=== PATIENT | female | born 1950 | race Caucasian/White ===

== ENCOUNTER 2018-12-19 07:15 | Day surgery (SDC) | payer MEDICARE ==
[~2018-12-19] VITALS: Ht 162.6 cm; Wt 54.4 kg
[~2018-12-19 07:15] MED LIST: ACETAMINOPHEN 325 MG TAB PO PRN; BSS with VANC/TOB/EPI for EYE CASES IR ONE; COMPAZINE; CYCLOPENTOLATE 2% OPHTH SOLN 2ML BTL OS ONE; DARV100T; HEALON DUET PRO(HEALON 10MG/ML 0.55ML & HEALON ENDOCOAT 30MG/ML 0.85ML) As Ordered ONE; IMODIUM; LIDOCAINE 1% SDV 5 ML VIAL As Ordered ONE; LIDOCAINE 3.5 % 1ML OPHTH TOPICAL GEL OU ONE; MIDAZOLAM INJ 2 MG/2 ML VIAL (J2250) As Ordered ONE; MOXIFLOXACIN IN BSS 0.25MG/0.25ML INTRACAMERAL INJ (OR EYE ONLY)(J2280) As Ordered ONE; OFLOXACIN 0.3 % (OCUFLOX) OPTH SOL 5ML OS ONE; ONDANSETRON 4MG/2ML VIAL (J2405) As Ordered ONE; PHENYLEPHRINE 2.5% OPHTH SOL 2ML OS ONE; PHENYLEPHRINE HCL 10 % OPHTH. SOL 5ML OS PRN; POTA20TA2; POVIDONE-IODINE 5% OPHTH PREP SOL 30ML As Ordered ONE; TRIAMCINOLONE PRES FR 40 MG/ML 1ML(TRIESENCE)(OR EYE ONLY)(J3300 PER 1MG) As Ordered ONE; TROPICAMIDE 1% OPHTH SOLN 2ML OS ONE; VITA500045 PO; fentaNYL 100 MCG/2 ML INJECTION (J3010) As Ordered ONE
[2018-12-19] MEDS ORDERED: LIDOCAINE 2% W/EPIN INJ 20ML **PRES FREE XX ONE (10:37)
[2018-12-19] MEDS ORDERED: LIDOCAINE 2% W/EPIN INJ 20ML **PRES FREE As Ordered ONE (10:56)
[2018-12-19 11:15] VITALS: BP 138/66
[2018-12-19] MEDS ORDERED: AcetaZOLAMIDE 500 MG ER CAP As Ordered ONE (11:15)
[2018-12-19] MEDS ORDERED: AcetaZOLAMIDE 500 MG ER CAP PO ONE (11:15)
[2018-12-19] MEDS ORDERED: TRIMETHOBENZAMIDE 300 MG CAP PO PRN (11:15)
== END 2018-12-19 11:25 | disposition home or self-care (01) ==
LOC: M SDC 07:15
PROVIDERS: ATTEND Ophthalmology
DX: H25.9 Unspecified age-related cataract (principal); Z85.44 Personal history of malignant neoplasm of other female genital organs; Z92.21 Personal history of antineoplastic chemotherapy; Z92.3 Personal history of irradiation; Z87.891 Personal history of nicotine dependence
CPT/HCPCS: 66984; 67515; 92015; J2250; J2280; J2405; J3010; J3300; V2632

== ENCOUNTER 2018-12-27 08:01 | Day surgery (SDC) | payer MEDICARE ==
[~2018-12-27] VITALS: Ht 162.6 cm; Wt 54.4 kg
[~2018-12-27 08:01] MED LIST changes: +CYCLOPENTOLATE 2% OPHTH SOLN 2ML BTL OD ONE; -CYCLOPENTOLATE 2% OPHTH SOLN 2ML BTL OS ONE; +OFLOXACIN 0.3 % (OCUFLOX) OPTH SOL 5ML OD ONE; -OFLOXACIN 0.3 % (OCUFLOX) OPTH SOL 5ML OS ONE; -ONDANSETRON 4MG/2ML VIAL (J2405) As Ordered ONE; +PHENYLEPHRINE 2.5% OPHTH SOL 2ML OD ONE; -PHENYLEPHRINE 2.5% OPHTH SOL 2ML OS ONE; +PHENYLEPHRINE HCL 10 % OPHTH. SOL 5ML OD PRN; -PHENYLEPHRINE HCL 10 % OPHTH. SOL 5ML OS PRN; +TROPICAMIDE 1% OPHTH SOLN 2ML OD ONE; -TROPICAMIDE 1% OPHTH SOLN 2ML OS ONE
[2018-12-27 11:25] VITALS: BP 112/53
[2018-12-27] MEDS ORDERED: AcetaZOLAMIDE 500 MG ER CAP As Ordered ONE (11:31)
[2018-12-27] MEDS ORDERED: TRIMETHOBENZAMIDE 300 MG CAP PO PRN (11:45)
[2018-12-27] MEDS ORDERED: AcetaZOLAMIDE 500 MG ER CAP PO ONE (11:45)
== END 2018-12-27 11:45 | disposition home or self-care (01) ==
LOC: M SDC 08:01
PROVIDERS: ATTEND Ophthalmology
DX: H25.9 Unspecified age-related cataract (principal); Z87.891 Personal history of nicotine dependence; Z85.44 Personal history of malignant neoplasm of other female genital organs; Z92.21 Personal history of antineoplastic chemotherapy; Z92.3 Personal history of irradiation
CPT/HCPCS: 66984; 67515; 92015; J2250; J2280; J3010; J3300; V2632

== ENCOUNTER → 2021-01-13 | Outpatient (CLI) | payer MEDICARE ==
[~2021-01-13] MED LIST changes: -ACETAMINOPHEN 325 MG TAB PO PRN; -BSS with VANC/TOB/EPI for EYE CASES IR ONE; -CYCLOPENTOLATE 2% OPHTH SOLN 2ML BTL OD ONE; -HEALON DUET PRO(HEALON 10MG/ML 0.55ML & HEALON ENDOCOAT 30MG/ML 0.85ML) As Ordered ONE; -LIDOCAINE 1% SDV 5 ML VIAL As Ordered ONE; -LIDOCAINE 3.5 % 1ML OPHTH TOPICAL GEL OU ONE; -MIDAZOLAM INJ 2 MG/2 ML VIAL (J2250) As Ordered ONE; -MOXIFLOXACIN IN BSS 0.25MG/0.25ML INTRACAMERAL INJ (OR EYE ONLY)(J2280) As Ordered ONE; -OFLOXACIN 0.3 % (OCUFLOX) OPTH SOL 5ML OD ONE; -PHENYLEPHRINE 2.5% OPHTH SOL 2ML OD ONE; -PHENYLEPHRINE HCL 10 % OPHTH. SOL 5ML OD PRN; -POVIDONE-IODINE 5% OPHTH PREP SOL 30ML As Ordered ONE; -TRIAMCINOLONE PRES FR 40 MG/ML 1ML(TRIESENCE)(OR EYE ONLY)(J3300 PER 1MG) As Ordered ONE; -TROPICAMIDE 1% OPHTH SOLN 2ML OD ONE; -fentaNYL 100 MCG/2 ML INJECTION (J3010) As Ordered ONE
[2021-01-13 16:01] LABS: HEMOGLOBIN A1c 5.2 %
[2021-01-13 16:20] LABS: FOLATE 21.4 NG/ML; RHEUMATOID FACTOR QUANT < 10.0 IU/ML (<15.0); THYROID STIMULATING HORMONE 0.833 uIU/ML (0.358-3.740); TOTAL PROTEIN 6.5 GM/DL (6.4-8.2); VITAMIN B12 LEVEL 430 PG/ML
[2021-01-14 12:04] LABS: ALBUMIN 4.22 GM/DL (3.29-5.55); ALBUMIN % 64.9 % (55.8-66.1); ALPHA-1-GLOBULIN % 3.9 % (2.9-4.9); ALPHA-1-GLOBULINS 0.25 GM/DL (0.17-0.41); ALPHA-2-GLOBULINS 0.67 GM/DL (0.42-0.99); ALPHA-2-GLOBULINS % 10.3 % (7.1-11.8); BETA-1-GLOBULINS 0.39 GM/DL (0.28-0.60); BETA-2-GLOBULINS % 3.9 % (3.2-6.5)
[2021-01-14 12:05] LABS: BETA-2-GLOBULINS 0.25 GM/DL (0.19-0.55); GAMMA GLOBULINS 0.72 GM/DL (0.65-1.58)
[2021-01-15 11:56] LABS: PTT LUPUS TYPE ANTICOAG SCREEN 0.9 (0-1.2)
== END ==
LOC: M PLALAB 12:08
PROVIDERS: ATTEND Psychiatry & Neurology Neurology
DX: G62.9 Polyneuropathy, unspecified (principal); Z79.899 Other long term (current) drug therapy

== ENCOUNTER 2021-01-17 13:50 | Outpatient (CLI) | payer MEDICARE ==
[~2021-01-17] VITALS: Ht 162.6 cm; Wt 52.2 kg
[2021-01-17 14:00] VITALS: BP 127/58
[2021-01-17] MEDS ORDERED: methylPREDNISolone 500 MG, VIAL MATE ADAPTER 1 EACH in NS 250 ML IV ONE (14:10)
[2021-01-17] MEDS ORDERED: CALC-190 PO (14:49)
[2021-01-17] MEDS ORDERED: DRIS50003 PO (14:55)
[2021-01-17 16:00] VITALS: BP 129/62
== END 2021-01-17 16:00 | disposition home or self-care (01) ==
LOC: M INFU 13:50
PROVIDERS: ATTEND Psychiatry & Neurology Neurology
DX: G37.9 Demyelinating disease of central nervous system, unspecified (principal)
CPT/HCPCS: 96365; J2930

== ENCOUNTER 2021-01-18 09:43 | Outpatient (CLI) | payer MEDICARE ==
[~2021-01-18] VITALS: Ht 162.6 cm; Wt 52.3 kg
[~2021-01-18 09:43] MED LIST changes: +CALC-190 PO; +DRIS50003 PO
[2021-01-18 09:49] VITALS: BP 143/79
[2021-01-18] MEDS ORDERED: methylPREDNISolone 500 MG, VIAL MATE ADAPTER 1 EACH in NS 250 ML IV ONE (11:00)
== END 2021-01-18 13:04 | disposition home or self-care (01) ==
LOC: M MSPAV 09:43 → M OPCLI4PV 09:43 → UNDODISIN 13:04 → M OPCLI4PV 13:04
PROVIDERS: ATTEND Psychiatry & Neurology Neurology
DX: G37.9 Demyelinating disease of central nervous system, unspecified (principal)
CPT/HCPCS: 96374; J2930

== ENCOUNTER 2021-01-19 08:40 | Outpatient (CLI) | payer MEDICARE ==
[2021-01-19 09:07] VITALS: BP 132/62
[2021-01-19] MEDS ORDERED: methylPREDNISolone 500 MG, VIAL MATE ADAPTER 1 EACH in NS 250 ML IV ONE (10:00)
== END 2021-01-19 11:00 ==
LOC: M INFU 08:40 → M MSPAV 08:46 → M INFU 11:00
PROVIDERS: ATTEND Psychiatry & Neurology Neurology
DX: G37.9 Demyelinating disease of central nervous system, unspecified (principal)
CPT/HCPCS: 96365; J2930

== ENCOUNTER 2021-01-20 14:57 | Outpatient (CLI) | payer MEDICARE ==
[~2021-01-20] VITALS: Ht 162.6 cm; Wt 52.2 kg
[2021-01-20] MEDS ORDERED: methylPREDNISolone 500 MG, VIAL MATE ADAPTER 1 EACH in NS 250 ML IV ONE (15:00)
[2021-01-20 15:08] VITALS: BP 139/68
[2021-01-20 16:23] VITALS: BP 112/56
== END 2021-01-20 16:26 | disposition home or self-care (01) ==
LOC: M INFU 14:57
PROVIDERS: ATTEND Psychiatry & Neurology Neurology
DX: G37.9 Demyelinating disease of central nervous system, unspecified (principal)
CPT/HCPCS: 96365; J2930

== ENCOUNTER 2021-01-21 14:44 | Outpatient (CLI) | payer MEDICARE ==
[~2021-01-21] VITALS: Ht 162.6 cm; Wt 52.2 kg
[2021-01-21] MEDS ORDERED: methylPREDNISolone 500 MG, VIAL MATE ADAPTER 1 EACH in NS 250 ML IV ONE (15:00)
[2021-01-21 15:13] VITALS: BP 106/58
== END 2021-01-21 16:00 | disposition home or self-care (01) ==
LOC: M INFU 14:44
PROVIDERS: ATTEND Psychiatry & Neurology Neurology
DX: G37.9 Demyelinating disease of central nervous system, unspecified (principal)
CPT/HCPCS: 96365; J2930

== ENCOUNTER → 2021-01-22 | Outpatient (CLI) | payer MEDICARE ==
[2021-01-22 16:54] LABS: INR 0.89; PROTHROMBIN TIME 12.4 SECONDS (12.7-14.5)
[2021-01-22 16:55] LABS: PARTIAL THROMBOPLASTIN TIME 31.4 SECONDS (25.9-37.0)
== END ==
LOC: M LAB 15:24
PROVIDERS: ATTEND Psychiatry & Neurology Neurology
DX: G35 Multiple sclerosis (principal); Z79.01 Long term (current) use of anticoagulants

== ENCOUNTER → 2021-02-12 | Outpatient (CLI) | payer MEDICARE ==
[~2021-02-12] MED LIST changes: +LIDOCAINE 1% MDV 20ML VIAL As Ordered ONE
[2021-02-12 11:28] LABS: APPEARANCE, CSF CLEAR (CLEAR); COLOR, CSF COLORLESS (COLORLESS); CSF TUBE# CELL CNT TUBE 1
[2021-02-12 11:35] VITALS: BP 101/51
[2021-02-12 12:01] LABS: CSF TUBE# GLU TUBE 1; CSF TUBE# TP TUBE 1; GLUCOSE CSF 54 MG/DL (40-75); TOTAL PROTEIN,CSF 50 MG/DL (15-45)
--- NOTE | 2021-02-12 16:19 | REP ---
INDICATION: MS PROTOCOL. TECHNIQUE: The procedure was performed under the direct supervision of Dr. Triana. The risks and benefits of the procedure were explained to the patient and informed consent was obtained. The L3-4 interspace was localized using fluoroscopic guidance. The skin was prepped and draped in a sterile fashion. 1% lidocaine was used as a local anesthetic. Using fluoroscopic guidance a 22-gauge spinal needle was inserted and advanced into the thecal sac. Opening pressure measured 10 cm of H2O. 12 ml of spinal fluid was withdrawn and sent to lab. The patient tolerated the procedure well and there were no immediate complications. Less than 6 seconds of fluoro time was utilized for this procedure. FINDINGS: Opening pressure measured 10 cm of H2O. IMPRESSION: Fluoro guidance for lumbar puncture. <Electronically signed by Shan Mayberry > 02/12/21 1525 <Electronically signed by Yohannes Triana > 02/12/21 1611
== END ==
LOC: M IRPRO 08:25
PROVIDERS: ATTEND Psychiatry & Neurology Neurology
DX: G37.9 Demyelinating disease of central nervous system, unspecified (principal)

== ENCOUNTER → 2022-06-24 | Outpatient (CLI) | payer MEDICARE ==
[~2022-06-24] MED LIST changes: -LIDOCAINE 1% MDV 20ML VIAL As Ordered ONE
[2022-06-24 09:31] LABS: BLOOD UREA NITROGEN 13 MG/DL (9-23); GLOMERULAR FILTRATION RATE > 60.0 (>39)
== END ==
LOC: M LAB 08:36
PROVIDERS: ATTEND Physician Assistant
DX: Z85.41 Personal history of malignant neoplasm of cervix uteri (principal)

== ENCOUNTER → 2022-07-28 | Outpatient (CLI) | payer MEDICARE ==
[2022-07-28 14:34] LABS: HEMOGLOBIN A1c 5.2 % (4.0-6.0)
[2022-07-28 14:36] LABS: FOLATE > 24.0 NG/ML (>5.4); RHEUMATOID FACTOR QUANT < 3.5 IU/ML (<14)
[2022-07-28 14:37] LABS: FREE THYROXINE INDEX 2.2 % (1.3-4.8); T UPTAKE 26.8 % (22.5-37.0); THYROXINE (T4) 8.1 UG/DL (4.5-10.9); VITAMIN B12 LEVEL 286 PG/ML (211-911)
[2022-07-29 12:10] LABS: ANTINUCLEAR ANTIBODIES DIRECT Negative (Negative)
== END ==
LOC: M LAB 12:56
PROVIDERS: ATTEND Psychiatry & Neurology Neurology
DX: G35 Multiple sclerosis (principal); E07.9 Disorder of thyroid, unspecified

== ENCOUNTER → 2022-08-17 | Outpatient (REF) | payer MEDICARE | LOC: M SFHCDERM 17:34 | PROVIDERS: ATTEND Physician Assistant | DX: D23.61 Other benign neoplasm of skin of right upper limb, including shoulder (principal) ==

== ENCOUNTER 2022-08-20 12:40 | Outpatient (CLI) | payer MEDICARE ==
[~2022-08-20] VITALS: Ht 162.6 cm; Wt 55.0 kg
[2022-08-20] MEDS ORDERED: methylPREDNISolone 500 MG, VIAL MATE ADAPTER 1 EACH in NS 250 ML IV ONE (13:00)
[2022-08-20 13:03] VITALS: BP 125/69
[2022-08-20 14:20] VITALS: BP 116/57
== END 2022-08-20 14:20 | disposition home or self-care (01) ==
LOC: M INFU 12:40
PROVIDERS: ATTEND Psychiatry & Neurology Neurology
DX: G35 Multiple sclerosis (principal)
CPT/HCPCS: 96365; J2930

== ENCOUNTER 2022-08-21 12:20 | Outpatient (CLI) | payer MEDICARE ==
[~2022-08-21] VITALS: Ht 162.6 cm; Wt 55.0 kg
[2022-08-21 12:20] VITALS: BP 128/68
[2022-08-21] MEDS ORDERED: methylPREDNISolone 500 MG, VIAL MATE ADAPTER 1 EACH in NS 250 ML IV ONE (13:00)
[2022-08-21 13:55] VITALS: BP 110/55
== END 2022-08-21 13:55 | disposition home or self-care (01) ==
LOC: M INFU 12:20
PROVIDERS: ATTEND Psychiatry & Neurology Neurology
DX: G35 Multiple sclerosis (principal)
CPT/HCPCS: 96365; J2930

== ENCOUNTER 2022-08-22 12:33 | Outpatient (CLI) | payer MEDICARE ==
[2022-08-22] MEDS ORDERED: methylPREDNISolone 500 MG, VIAL MATE ADAPTER 1 EACH in NS 250 ML IV ONE (14:00)
== END 2022-08-22 14:48 ==
LOC: M OPCLI4PV 12:33 → M INFU 12:33 → M MSPAV 12:43 → M OPCLI4PV 14:48
PROVIDERS: ATTEND Psychiatry & Neurology Neurology
DX: G35 Multiple sclerosis (principal)
CPT/HCPCS: 96365; J2930

== ENCOUNTER 2022-08-23 12:26 | Outpatient (CLI) | payer MEDICARE ==
[~2022-08-23] VITALS: Ht 162.6 cm; Wt 55.0 kg
[2022-08-23 12:50] VITALS: BP 123/63
[2022-08-23] MEDS ORDERED: methylPREDNISolone 500 MG, VIAL MATE ADAPTER 1 EACH in NS 250 ML IV ONE (13:05)
[2022-08-23 15:22] VITALS: BP 115/61
== END 2022-08-23 15:35 | disposition home or self-care (01) ==
LOC: M OPCLI4PV 12:26 → M MSPAV 12:28 → M OPCLI4PV 15:35
PROVIDERS: ATTEND Psychiatry & Neurology Neurology
DX: G35 Multiple sclerosis (principal)
CPT/HCPCS: 96365; J2930

== ENCOUNTER 2022-08-24 13:05 | Outpatient (CLI) | payer MEDICARE ==
[~2022-08-24 13:05] MED LIST changes: +methylPREDNISolone 500 MG, VIAL MATE ADAPTER 1 EACH in NS 250 ML IV ONE
[2022-08-24 13:10] VITALS: BP 120/58
[2022-08-24 14:25] VITALS: BP 123/68
== END 2022-08-24 14:25 | disposition home or self-care (01) ==
LOC: M INFU 13:05
PROVIDERS: ATTEND Psychiatry & Neurology Neurology
DX: G35 Multiple sclerosis (principal)
CPT/HCPCS: 96365; J2930

== ENCOUNTER → 2022-09-04 | Outpatient (REF) | payer MEDICARE ==
[~2022-09-04] MED LIST changes: -methylPREDNISolone 500 MG, VIAL MATE ADAPTER 1 EACH in NS 250 ML IV ONE
== END ==
LOC: M LAB REF 13:51
PROVIDERS: ATTEND Otolaryngology
DX: J02.9 Acute pharyngitis, unspecified (principal)

== ENCOUNTER → 2024-03-22 | Outpatient (REF) | payer MEDICARE | LOC: M PLALAB 16:01 | PROVIDERS: ATTEND Obstetrics & Gynecology | DX: Z12.72 Encounter for screening for malignant neoplasm of vagina (principal); R87.618 Other abnormal cytological findings on specimens from cervix uteri; R87.610 Atypical squamous cells of undetermined significance on cytologic smear of cervix (ASC-US) | CPT/HCPCS: 87624; G0123 ==